=== PATIENT | female | born 1945 | race Caucasian/White ===

== ENCOUNTER 2017-10-12 05:25 | Emergency (ER) | payer OTHER, MEDICARE ==
[~2017-10-12] VITALS: Ht 167.6 cm; Wt 54.4 kg
[~2017-10-12 05:25] MED LIST: ATIVAN0.5 M1 PO; CYCLOBENZAPRINE5 M2 PO; SYNTHROID75 MCG PO
[2017-10-12] MEDS ORDERED: SULFAMETHOXAZO1 EAC1 (05:37)
[2017-10-12] MEDS ORDERED: FLAGYL250 M1 PO (05:37)
--- NOTE | 2017-10-12 05:45 | ED GI/GU/ABDOMINAL COMPLAINT ---
History of Present Illness General Chief Complaint: General Adult Stated Complaint: BIBA DRY MOUTH Source: patient Exam Limitations: no limitations Vital Signs & Intake/Output Vital Signs & Intake/Output Vital Signs Date Time Temp Pulse Resp B/P B/P Pulse O2 O2 Flow FiO2 Mean Ox Delivery Rate 10/12 0741 97.6 70 18 154/88 97 Room Air 10/12 0528 97.5 70 20 172/96 99 Room Air Allergies Coded Allergies: Penicillins (Severe, HIVES 02/28/17) wheat (Intermediate, GI UPSET 02/28/17) Uncoded Allergies: GMO'S ("THEY AFFECT ME" 02/12/17) Triage Note: BIBA FROM HOME. PT RECENTLY DX WITH DIVERTICULITIS. PT BEGAN TAKING SULFMETHTOXOZOLE AND FLAGYL 2 DAYS AGO. THIS AM WOKE UP WITH DRY MOUTH AND NAUSEA. PT ARRIVES WITH A COLD PACK APPLIED TO NECK, PT REPORTS IT "HELPS WITH THE NAUSEA. VSS. PT GIVEN BASIN AND NEW ICE PACK. PT REQUESTED TISSUES TO BLOW NOSE. PT THEN REQUESTED SOMETHING TO DRINK. INFORMED PT THAT SHE NEEDS TO BE EVALUATED FIRST BY PROVIDER. Triage Nurses Notes Reviewed? yes ? n Is pt currently ? No HPI: Patient presents for evaluation of nausea and burping. Patient states that she was also unable to have a bowel movement today (her last normal bowel movement was yesterday). She states roughly 5 days ago she was at the [facility] emergency Department and diagnosed with diverticulitis. She is currently taking Bactrim and Flagyl. She denies fever, cold symptoms, dyspnea, chest pain, abdominal pain, rashes, vomiting, recent travel or known ill contacts. She is feeling weak and dizzy in addition to the nausea and burping. (Lauryn HENDRIX,Jason Rodas) Reconcile Medications Cyclobenzaprine HCl 5 MG TABLET 1 TAB PO DAILY NEEDED muscle spasm ( Reported) Levothyroxine Sodium (Synthroid) 75 MCG TABLET 1 TAB PO DAILY HYPOTHYROID ( Reported) Lorazepam (Ativan) 0.5 MG TABLET 1 TAB PO DAILY NEEDED ANXIETY (Reported) Metronidazole (Flagyl) (Unknown Strength) TABLET (Unknown Dose) PO TID ANTIBIOTIC, INFECTION (Reported) Ondansetron (Zofran Odt) 4 MG TAB.RAPDIS 1 TAB SL Q6 PRN NAUSEA/VOMITING Sulfamethoxazole/Trimethoprim (Sulfamethoxazole-Tmp Ds Tablet) (Unknown Strength ) TABLET (Unknown Dose) ANTI-INFLAMMATORY (Reported) (Robert HENDRIX,Jonatan Dial) Past History Travel History Traveled to [place] past 21 day No Medical History Any Pertinent Medical History? see below for history Neurological: NONE EENT: NONE Cardiovascular: NONE Respiratory: NONE Gastrointestinal: diverticulitis, ulcerative colitis Hepatic: NONE Renal: NONE Musculoskeletal: NONE Psychiatric: NONE Endocrine: hypothyroidism Blood Disorders: NONE Cancer(s): NONE CUT PRESSMAN/Reproductive: NONE History of MRSA: No History of VRE: No History of CDIFF: No Influenza Vaccine: 01/25/17 Surgical History Surgical History: appendectomy Psychosocial History What is your primary language Salvadorean Tobacco Use: Never used ETOH Use: denies use Illicit Drug Use: denies illicit drug use Family History Hx Contributory? No (Lauryn HENDRIX,Jason Rodas) Review of Systems Review of Systems Constitutional: Reports: no symptoms. EENTM: Reports: no symptoms. Respiratory: Reports: no symptoms. Cardiovascular: Reports: no symptoms. GI: Reports: see HPI. Genitourinary: Reports: no symptoms. Musculoskeletal: Reports: no symptoms. Skin: Reports: no symptoms. Neurological/Psychological: Reports: no symptoms. Hematologic/Endocrine: Reports: no symptoms. Immunologic/Allergic: Reports: no symptoms. All Other Systems: Reviewed and Negative (Lauryn HENDRIX,Jason Rodas) Physical Exam Physical Exam Gastrointestinal: see below Comments: Gen.: Well-nourished, well-developed, no acute respiratory distress. Mild to moderate discomfort. Head: Normocephalic, atraumatic. Eyes: Normal inspection bilaterally Ears: Normal inspection bilaterally Nose: Normal inspection Throat/mouth : Moist mucosa Neck: Supple, full range of motion, no goiter Heart: Regular rate and rhythm, no murmurs rubs or gallops Lungs: Clear to auscultation bilaterally with normal air entry Chest: Nontender Back: Normal range of motion Abdomen: Soft, nontender, nondistended, normal bowel sounds Extremities: Normal range of motion grossly, equal radial pulses, no cyanosis clubbing or edema Neurologic: Cranial nerves grossly intact, speech is clear Skin: warm and dry Psychiatric: Calm, cooperative, no apparent delusions or hallucinations Core Measures ACS in differential dx? No Sepsis Present: No Sepsis Focused Exam Completed? No (Jason Combs MD) Progress Differential Diagnosis: bowel obstruction, diverticulitis, gastritis, hepatitis, ischemic bowel, inflamm bowel dis, pancreatitis Plan of Care: Orders Procedure Date/time Status URINALYSIS 10/13 543 Complete LIPASE 10/13 543 Complete COMPREHENSIVE METABOLIC PANEL 10/13 543 Complete CBC WITHOUT DIFFERENTIAL 10/13 543 Complete Laboratory Tests 10/12/17 0600: Anion Gap 13, Estimated GFR > 60, BUN/Creatinine Ratio 12.5, Glucose 128 H, Calcium 8.9, Total Bilirubin 0.7, AST 23, ALT 26, Alkaline Phosphatase 67, Total Protein 6.7, Albumin 3.9, Globulin 2.8, Albumin/Globulin Ratio 1.4, Lipase 69, CBC w Diff NO MAN DIFF REQ, RBC 4.38, MCV 90.5, MCH 29.7, MCHC 32.8 L, RDW 14.2 , MPV 7.8, Gran % 88.0 H, Lymphocytes % 6.4 L, Monocytes % 4.9, Eosinophils % 0.4, Basophils % 0.3, Absolute Granulocytes 9.9 H, Absolute Lymphocytes 0.7 L, Absolute Monocytes 0.6, Absolute Eosinophils 0, Absolute Basophils 0, Urinalysis LIGHT H, Urine Color YEL, Urine Clarity HAZY H, Urine pH 6.0, Ur Specific [place] >= 1.030, Urine Protein NEG, Urine Ketones >=80, Urine Nitrite NEG, Urine Bilirubin NEG, Urine Urobilinogen 0.2, Ur Leukocyte Esterase TRACE H, Ur Microscopic SEDIMENT EXAMINED, Urine RBC 15-25 H, Urine WBC 3-5 H, Ur Epithelial Cells FEW, Urine Crystals RARE UR AC, Urine Bacteria FEW H, Urine Mucus FEW, Urine Hemoglobin MOD H, Urine Glucose NEG Diagnostic Imaging: Discussed w/RAD: Radiology Read. Radiology Impression: PATIENT: Bri NICHOLAS PRESENT AGE : 71 PATIENT ACCOUNT NO: [id number] : 44 LOCATION: [facility] ORDERING PHYSICIAN: Jason Combs MD SERVICE DATE: 10/12/17 EXAM TYPE: RAD - [id number] VIEWS EXAMINATION: XR ABDOMEN MULTIPLE VIEWS CLINICAL INDICATION: Nausea, weakness, current treatment for diverticulitis COMPARISON: 03/01/2017 TECHNIQUE: 2 views of the abdomen. FINDINGS: No intra-abdominal free air is seen. The bowel gas pattern is nonobstructive. No definite renal calculi are seen. The visualized lung bases appear clear. Degenerative changes are present in the lower lumbar spine. IMPRESSION: No free air identified. Nonobstructive bowel gas pattern. DICTATED BY: Pedro Odonnell MD DATE/TIME DICTATED:10/12/17624 PIERCING SPECIALIST:JEOVANY DATE/TIME TRANSCRIBED:624 CONFIDENTIAL, DO NOT COPY WITHOUT APPROPRIATE AUTHORIZATION. < Electronically signed in Other Vendor System> SIGNED BY: Pedro Odonnell MD 10/12/17630 Initial ED EKG: none Comments: 10/12/2017 7:24:30 AM I have updated EJ on her test results. She states it doesn 't like the way the GI cocktail makes her throat feel. She has been tolerating sips of fluid but she is feeling a bit nauseous again as a result of the GI cocktail. She is also requesting lorazepam that she typically takes for anxiety. (Lauryn HENDRIX,Jason Rodas) Departure Departure Disposition: HOME OR SELF CARE Condition: Stable Clinical Impression Primary Impression: Diverticulitis Secondary Impressions: Anxiety Referrals: Don Au MD (PCP/Family) Additional Instructions: Zofran as needed for nausea or vomiting. Continue your current antibiotics for diverticulitis. Follow-up with your primary care physician tomorrow for reevaluation. Return if any concerns or sudden worsening. Please note that there might be incidental findings in your evaluation that are unrelated to the current emergency department visit. Please notify your primary care doctor about this emergency department visit in order to obtain and review all of the testing performed so that these incidental findings can be monitored as needed. If you had an x-ray performed, please understand that some fractures or other findings may not be seen on the initial set of x-rays. If your symptoms persist you might need a repeat set of x-rays to check for such a fracture. If you had a laceration evaluated, please understand that foreign bodies such as glass or wood may not be visible to the naked eye or on plain x-rays. If the wound becomes red, swollen, increasingly more painful or if there is any drainage from the wound, please have it reevaluated by a physician for the possibility of a retained foreign body. If you're unable to follow up as outlined in the discharge instructions please return to the emergency department. Thank you for choosing the [facility] Emergency Department for your care. It was a pleasure to serve you today. Jason Combs M.D. [facility] Departure Forms: Customer Survey General Discharge Information Prescriptions: Current Visit Scripts Ondansetron (Zofran Odt) 1 TAB SL Q6 PRN NAUSEA/VOMITING #10 TAB (Lauryn HENDRIX,Jason Rodas) Ondansetron (Zofran Odt) 1 TAB SL Q6 PRN NAUSEA/VOMITING #10 TAB
[2017-10-12 06:16] LABS: ABSOLUTE BASOPHIL COUNT 0 /CUMM (0.0-0.2); ABSOLUTE EOSINOPHIL COUNT 0 /CUMM (0.0-0.7); ABSOLUTE GRANULOCYTE CT 9.9 /CUMM (1.4-6.5); ABSOLUTE LYMPH COUNT 0.7 /CUMM (1.2-3.4); ABSOLUTE MONOCYTE COUNT 0.6 /CUMM (0.10-0.60); BASOPHIL % 0.3 % (0.0-2.0); EOSINOPHIL % 0.4 % (0-5); HEMATOCRIT 39.6 % (37-47); MEAN CORPUSCULAR HGB 29.7 PG (27.0-31.0); MEAN CORPUSCULAR HGB CONC 32.8 G/DL (33.0-37.0); MEAN CORPUSCULAR VOLUME 90.5 FL (81.0-99.0); MEAN PLATELET VOLUME 7.8 FL (7.4-10.4); PLATELET COUNT 331 /CUMM (130-400); RBC DISTRIBUTION WIDTH 14.2 % (11.5-14.5); RED BLOOD CELL CT 4.38 /CUMM (4.20-5.40); WHITE BLOOD CELL COUNT 11.2 /CUMM (4.8-10.8)
--- NOTE | 2017-10-12 06:31 | RADIOLOGY REPORT ---
EXAMINATION: XR ABDOMEN MULTIPLE VIEWS CLINICAL INDICATION: Nausea, weakness, current treatment for diverticulitis COMPARISON: 03/01/2017 TECHNIQUE: 2 views of the abdomen. FINDINGS: No intra-abdominal free air is seen. The bowel gas pattern is nonobstructive. No definite renal calculi are seen. The visualized lung bases appear clear. Degenerative changes are present in the lower lumbar spine. IMPRESSION: No free air identified. Nonobstructive bowel gas pattern.
[2017-10-12] MEDS ORDERED: ZOFRAN ODT4 M1 SL (07:27)
[2017-10-12 07:41] VITALS: BP 154/88
== END 2017-10-12 08:15 ==
LOC: ERH 05:25
PROVIDERS: Emergency Medicine
DX: K57.92 Diverticulitis of intestine, part unspecified, without perforation or abscess without bleeding (principal); F41.9 Anxiety disorder, unspecified; R11.0 Nausea; R42 Dizziness and giddiness; R53.1 Weakness
CPT/HCPCS: 74021; 81001; 96361; 96374; 96376; J2405